=== PATIENT | female | born 1995 | race Caucasian/White ===

== ENCOUNTER 2018-10-27 08:49 | Emergency (ER) | payer OTHER ==
[~2018-10-27] VITALS: Ht 160 cm; Wt 79.0 kg
[2018-10-27 08:55] VITALS: BP 127/83; PULSE 118; RESP 24; Ht 160 cm; Wt 79.0 kg
--- NOTE | 2018-10-27 09:27 | ERD ---
ER Documentation Chief Complaint Chief Complaint vaginal bleeding with clots used 3 pads since yesterday - LMP 09/01/18 HPI 22-year-old female at 8 weeks gestation presents with history of vaginal bleeding which started yesterday. States that the vaginal bleeding stopped this morning. She went through 3 pads yesterday and noticed clots. States she had a previous on july 21. Does not have OBGYN and has never had US. LMP 09/01/18. Denies abdominal pain, dysuria, lightheadedness, dizziness. Past medical history of hypertension. Denies allergies. Takes atenolol. Denies surgeries. Denies alcohol, tobacco, or drug use. ROS All systems reviewed and are negative except as per history of present illness. Allergies Allergies: Coded Allergies: No Known Allergy (Unverified , 10/27/18) Physical Exam Vitals Vital Signs Date Temp Pulse Resp B/P (MAP) Pulse Ox O2 O2 Flow FiO2 Time Delivery Rate 10/27/18 99.2 118 24 127/83 98 08:55 (98) Physical Exam General: Well developed, well nourished. No acute distress. Heart: RR w/o murmur, rubs, or gallops. Lungs: Clear to auscultation bilaterally w/o wheezes, crackles, rhonchi. Symmetric rise and fall. Equal breath sounds. Abdomen: Soft, nontender, with no rigidity or guarding noted. No masses, lesions, or ecchymoses. Normoactive bowel sounds. No McBurney's point tenderness. No suprapubic tenderness. No tenderness to palpation in splenic area or splenomegaly. Back: No CVA tenderness.. Skin: No pallor or cyanosis. Psych: Normal mood and affect. Result Diagram: 10/27/1828 Results 24 hrs Laboratory Tests Test 10/27/18 09:28 White Blood Count 8.6 10^3/ul Red Blood Count 4.50 10^6/ul Hemoglobin 12.9 g/dl Hematocrit 39.1 % Mean Corpuscular Volume 86.9 fl Mean Corpuscular Hemoglobin 28.7 pg Mean Corpuscular Hemoglobin Concent 33.0 g/dl Red Cell Distribution Width 12.8 % Platelet Count 341 10^3/UL Mean Platelet Volume 9.1 fl Immature Granulocytes % 0.500 % Neutrophils % 75.0 % Lymphocytes % 18.5 % Monocytes % 5.4 % Eosinophils % 0.3 % Basophils % 0.3 % Nucleated Red Blood Cells % 0.0 /100WBC Immature Granulocytes # 0.040 10^3/ul Neutrophils # 6.4 10^3/ul Lymphocytes # 1.6 10^3/ul Monocytes # 0.5 10^3/ul Eosinophils # 0.0 10^3/ul Basophils # 0.0 10^3/ul Nucleated Red Blood Cells # 0.0 10^3/ul Urine Color YELLOW Urine Clarity CLEAR Urine pH 7.0 Urine Specific [place] 1.011 Urine Ketones NEGATIVE mg/dL Urine Nitrite NEGATIVE mg/dL Urine Bilirubin NEGATIVE mg/dL Urine Urobilinogen NEGATIVE mg/dL Urine Leukocyte Esterase NEGATIVE Clifford/ul Urine Microscopic RBC 1 /HPF Urine Microscopic WBC 0 /HPF Urine Hemoglobin 2+ mg/dL Urine Glucose NEGATIVE mg/dL Urine Total Protein NEGATIVE mg/dl Beta HCG, Quantitative 98671.0 mIU/ml Procedures/MDM ER Course: CBC, CMP, UA, HCG, abdominal US. MDM: 22-year-old female presents with history of vaginal bleeding which started yesterday. States that the vaginal bleeding stopped this morning. She went through 3 pads yesterday and noticed clots. Denies abdominal pain, dysuria, lightheadedness, dizziness. Present patient history complaint decision was made to order labs as well as ultrasound. Ultrasound showed a live intrauterine . Therefore, I have low suspicion for ectopic or . Patient Rh+. Patient stated that she does not currently have an LINES TENDER but she committed to seeing one tomorrow. I printed out a list of LINES TENDER's that she can see. Patient discharged with strict ER precautions. Patient advised to follow up with PMD. All questions answered at discharge. Departure Diagnosis: Primary Impression: Vaginal bleeding in patient at less than 20 weeks gestation Condition: Stable JAZMINE MERRITT Oct 27, 2018 09:27
== END 2018-10-27 11:48 | disposition home or self-care (01) ==
LOC: FTE 08:49
DX: O20.9 Hemorrhage in early pregnancy, unspecified (principal); Z3A.08 8 weeks gestation of pregnancy
CPT/HCPCS: 36415; 76801; 81001; 84702; 85025; 86900; 86901; Z7502